=== PATIENT | male | born 1965 | race Caucasian/White ===

== ENCOUNTER → 2018-09-09 | Outpatient (CLI) | payer OTHER ==
--- NOTE | 2018-09-10 11:52 | ECHOF ---
Referral Reason:R07.9 Chest Pain MEASUREMENTS -------- HEIGHT: 188.0 cm WEIGHT: 136.1 kg BP: IVSd: 1.4 cm (0.6 - 1.1) LVIDd: 3.3 cm (3.9 - 5.3) LVPWd: 1.4 cm (0.6 - 1.1) IVSs: 1.8 cm LVIDs: 2.1 cm LVPWs: 1.8 cm RVIDd: 2.8 cm (< 3.3) LAESV Index (A-L): 21.03 ml/m Ao Diam: 3.8 cm (2.0 - 3.7) LA Diam: 2.7 cm (2.7 - 3.8) AV Cusp: 2.0 cm (1.5 - 2.6) MV E Jorge: 0.70 m/s MV DecT: 355 ms MV A Jorge: 0.73 m/s MV E/A Ratio: 0.97 RAP: 5.00 mmHg RVSP: 10.99 mmHg FINDINGS -------- Sinus rhythm. This was a technically adequate study. The left ventricular size is normal. There is moderate concentric left ventricular hypertrophy. O verall left ventricular systolic function is normal with, an EF between 55 - 60 %. The right ventricle is normal in size and function. Normal LA size by volume 22+/-6 ml/m2. The right atrium is normal in size. There is mild aortic valve sclerosis. There is no evidence of aortic regurgitation. There is no e vidence of aortic stenosis. The mitral valve leaflets are mildly thickened. There is trace to mild mitral regurgitation. Trace tricuspid regurgitation present. Right ventricular systolic pressure is normal at < 35 mmHg. There is no evidence of pulmonary hypertension. The pulmonic valve was not well visualized. The aortic root size is normal. Normal inferior vena cava with normal inspiratory collapse consistent with estimated right atrial pre ssure of 5 mmHg. There is no pericardial effusion. CONCLUSIONS -------- 1. Sinus rhythm. 2. This was a technically adequate study. 3. The left ventricular size is normal. 4. There is moderate concentric left ventricular hypertrophy. 5. Overall left ventricular systolic function is normal with, an EF between 55 - 60 %. 6. Normal LA size by volume 22+/-6 ml/m2. 7. There is mild aortic valve sclerosis. 8. The mitral valve leaflets are mildly thickened. 9. There is trace to mild mitral regurgitation. 10. Trace tricuspid regurgitation present. 11. Right ventricular systolic pressure is normal at < 35 mmHg. 12. There is no evidence of pulmonary hypertension. 13. The pulmonic valve was not well visualized. 14. The aortic root size is normal. 15. There is no pericardial effusion. [employer]OWNS: Jim Tang RDCS
--- NOTE | 2018-09-10 21:56 | EST ---
EXERCISE STRESS AGE: 53 SEX: Male HT: 6'2" WT: 300 PROTOCOL: Linwood STAGE: II DURATION OF EXERCISE: 7:30 HEART RATE REST: 72 BLOOD PRESSURE REST: 133/101 MAXIMUM HEART RATE ACHIEVED: 144 MAXIMUM BLOOD PRESSURE: 183/81 85% MPHR: 141 100% MPHR: 166 METS: 9.1 INDICATIONS: Chest pain. CLINICAL INFORMATION: Baseline heart rate 72 beats per minute. Baseline blood pressure 133/100 mmHg. Baseline 12-lead ECG shows sinus rhythm with normal ST segments. Patient exercised on a Linwood protocol for 7 minutes 36 seconds, achieving a peak heart rate of 146 beats per minute. Peak blood pressure 183/81 mmHg. He was short of breath at peak exercise. No chest pain noted. No ECG changes of ischemia. No arrhythmias. IMPRESSION: Average exercise capacity with shortness of breath and exertion without any ischemic changes. MMODL / IJN: [id number] /
== END | disposition home or self-care (01) ==
LOC: RADNMMAIN 10:45
PROVIDERS: ATTEND Family Medicine
DX: I08.0 Rheumatic disorders of both mitral and aortic valves (principal)
CPT/HCPCS: 93017; 93306

== ENCOUNTER 2024-08-31 13:19 | Emergency (ER) | payer BC, OTHER ==
[2024-08-31 13:51] VITALS: TEMP 98.1
--- NOTE | 2024-08-31 14:15 | ED ---
Fall HPI - General Source: patient Mode of arrival: ambulatory <Juan Carlos Minor - Last Filed: 08/31/24 14:14> - General Source: patient, RN notes reviewed, old records reviewed Mode of arrival: ambulatory Limitations: no limitations - History of Present Illness MD Complaint: fall -: hour(s) Fall From: standing When Fall Occurred: 1 hour [employer] Fall Witnessed: no Place Fall Occurred: home Loss of Consciousness: none Prolonged Down Time?: no Symptoms Prior to Fall: none Location: head Severity: moderate Severity scale (1-10): 6 Context: tripped/slipped Associated Symptoms: denies <Pedro Breaux - Last Filed: 09/01/24 07:46> - General Chief Complaint: Fall Stated Complaint: Fall-Head injury - History of Present Illness Initial Comments: Quick note: This is a 59-year-old male presenting with ongoing headache (10/18), dizziness difficulty concentrating following fall x10 days ago. Patient states he had a slip and fall on the ice, falling backwards and striking the back of his head causing loss of consciousness, sidewalk. Endorses ongoing symptoms, pain in right forehead and difficulty concentrating. (Juan Carlos Minor) This is a 59-year-old male to ER headache after fall. Patient is having persistent nausea vomiting and headache here in the emergency department. (Pedro Breaux) - Related Data Allergies Allergy/AdvReac Type Severity Reaction Status Date / Time No Known Allergies Allergy Verified 08/31/24 13:51 Review of Systems ROS Other: All systems not noted in ROS Statement are negative. <Juan Carlos Minor - Last Filed: 08/31/24 14:14> ROS Other: All systems not noted in ROS Statement are negative. <Pedro Breaux - Last Filed: 09/01/24 07:46> ROS Statement: Those systems with pertinent positive or pertinent negative responses have been documented in the HPI. Past Medical History Additional Past Medical History / Comment(s): allergies History of Any Multi-Drug Resistant Organisms: None Reported Past Surgical History: Cholecystectomy, Orthopedic Surgery Additional Past Surgical History / Comment(s): B/L knee arthro Past Psychological History: No Psychological Hx Reported Smoking Status: Current every day smoker Past Alcohol Use History: Occasional Past Drug Use History: Marijuana <Juan Carlos Minor - Last Filed: 08/31/24 14:14> General Exam Limitations: no limitations <MilyJuan Carlos - Last Filed: 08/31/24 14:14> General appearance: alert, in no apparent distress Head exam: Present: atraumatic, normocephalic, normal inspection Eye exam: Present: normal appearance, PERRL, EOMI. Absent: scleral icterus, conjunctival injection, periorbital swelling ENT exam: Present: normal exam, mucous membranes moist Neck exam: Present: normal inspection. Absent: tenderness, meningismus, lymphadenopathy Respiratory exam: Present: normal lung sounds bilaterally. Absent: respiratory distress, wheezes, rales, rhonchi, stridor Cardiovascular Exam: Present: regular rate, normal rhythm, normal heart sounds. Absent: systolic murmur, diastolic murmur, rubs, gallop, clicks GI/Abdominal exam: Present: soft, normal bowel sounds. Absent: distended, tenderness, guarding, rebound, rigid Extremities exam: Present: normal inspection, full ROM, normal capillary refill. Absent: tenderness, pedal edema, joint swelling, calf tenderness Back exam: Present: normal inspection Neurological exam: Present: alert, oriented X3, CN II-XII intact Psychiatric exam: Present: normal affect, normal mood Skin exam: Present: warm, dry, intact, normal color. Absent: rash <Pedro Breaux - Last Filed: 09/01/24 07:46> - General Exam Comments Initial Comments: Visual Physical Exam Vital signs reviewed General: Well-appearing, nontoxic, no acute distress. Head: Normocephalic, atraumatic Eyes: PERRLA, EOMI ENT: Airway patent Chest: Nonlabored breathing Skin: No visual rash, normal skin tone Neuro: Alert and oriented 3 Musculoskeletal: No gross abnormalities (Juan Carlos Minor) Course <Pedro Breaux - Last Filed: 09/01/24 07:46> Vital Signs 08/31/24 08/31/24 13:46 17:06 Temperature 98.1 F Pulse Rate 84 65 Respiratory 20 18 Rate Blood Pressure 153/97 149/92 O2 Sat by Pulse 98 98 Oximetry - Reevaluation(s) Reevaluation #1: 08/31/24 16:38 Medical record was reviewed (Pedro Breaux) Reevaluation #2: 08/31/24 16:38 Symptoms unchanged (Pedro Breaux) Reevaluation #3: 08/31/24 16:38 Informed of results and questions answered (Pedro Breaux) Reevaluation #4: Was pt. sent in by a medical professional or institution ([facility], [employer], urgent c are, hospital, or intermediate...) When possible be specific @ -no Did you speak to anyone other than the patient for history (EMS, parent, family, police, friend...)? What history was obtained from this source @ -no Did you review nursing and triage notes (agree or disagree)? Why? @ -agree Are old charts reviewed (outside hosp., previous admission, EMS record, old EKG, old radiological studies, urgent care reports/EKG's, intermediate records)? Report findings @ -yes Differential Diagnosis (chest pain, altered mental status, abdominal pain women, abdominal pain men, vaginal bleeding, weakness, fever, dyspnea, syncope, headache, dizziness, GI bleed, back pain, seizure, CVA, palpatations, mental health, musculoskeletal)? @ -prior EKG interpreted by me (3pts min.). @ -no X-rays interpreted by me (1pt min.). @ -no CT interpreted by me (1pt min.). @ -yes negative for acute disease U/S interpreted by me (1pt. min.). @ -no What testing was considered but not performed or refused? (CT, X-rays, U/S, labs)? Why? @ -none What meds were considered but not given or refused? Why? @ -none Did you discuss the management of the patient with other professionals (professionals i.e. [facility], [employer], lab, RT, psych nurse, medical social worker, learning engineer, teacher, [employer] revenue officer, director of casework services)? Give summary @ -no Was smoking cessation discussed for >3mins.? @ -no Was critical care preformed (if so, how long)? @ -no Were there social determinants of health that impacted care today? How? (Homelessness, low income, unemployed, alcoholism, drug addiction, transportation, low edu. Level, literacy, decrease access to med. care, group home, rehab)? @ -none Was there de-escalation of care discussed even if they declined (Discuss DNR or withdrawal of care, Hospice)? DNR status @ -no What co-morbidities impacted this encounter? (DM, HTN, Smoking, COPD, CAD, Cancer, CVA, ARF, Chemo, Hep., AIDS, mental health diagnosis, sleep apnea, morbid obesity)? @ -none Was patient admitted / discharged? Hospital course, mention meds given and route, prescriptions, significant lab abnormalities, going to OR and other pertinent info. @ - 59 male to the ER for evaluation patient presents today for evaluation of fall with head injury. No acute findings noted on imaging and patient can be discharged home Discharged Undiagnosed new problem with uncertain prognosis? @ -no Drug Therapy requiring intensive monitoring for toxicity (Heparin, Nitro, Insulin, Cardizem)? @ -no Were any procedures done? @ -no Diagnosis/symptom? @ - Acute, or Motion Picture Actor head injury fall steve, or Acute on Chronic? @ -Acute Uncomplicated (without systemic symptoms) or Complicated (systemic symptoms)? @ -Complicated Side effects of treatment? @ -no Exacerbation, Progression, or Severe Exacerbation? @ -exacerbation Poses a threat to life or bodily function? How? (Chest pain, USA, CT, pneumonia, PE, COPD, DKA, ARF, appy, cholecystitis, CVA, Diverticulitis, Homicidal, Suicidal, threat to staff... and all critical care pts) @ -yes significant head injury (Pedro Breaux) Medical Decision Making <Juan Carlos Minor - Last Filed: 08/31/24 14:14> - Radiology Data Radiology results: report reviewed (CT brain C-spine negative for acute disease), image reviewed <Pedro Breaux - Last Filed: 09/01/24 07:46> - Medical Decision Making I completed the quick note portion of this chart signed OK Carty Sterling) 59 male to the ER for evaluation patient presents today for evaluation of fall with head injury. No acute findings noted on imaging and patient can be discharged home (Pedro Breaux) Disposition <Juan Carlos Minor - Last Filed: 08/31/24 14:14> Is patient prescribed a controlled substance at d/c from ED?: No Time of Disposition: 16:30 <Pedro Breaux - Last Filed: 09/01/24 07:46> Clinical Impression: Fall, Head injury Disposition: HOME SELF-CARE Condition: Good Instructions (If sedation given, give patient instructions): Head Injury (ED) Referrals: Klaus Vargas MD [Primary Care Provider] - 1-2 days
--- NOTE | 2024-08-31 15:47 | CT ---
EXAMINATION TYPE: CT brain josue wo con DATE OF EXAM: 08/31/2024 3:32 PM COMPARISON: None. CLINICAL INDICATION: Male, 59 years old with history of Fall with ongoing head pain, dizziness, fell 10 days ago/ dizzy, pain TECHNIQUE: CT of the brain is performed utilizing 3 mm thick sections through the posterior fossa and 3 mm thick sections through the remaining calvarium. Study is performed within 24 hours of arrival to the hospital. Contrast used: mL of , (none if empty) CT DLP: 1541.8 mGycm, Automated exposure control for dose reduction was used. FINDINGS: No abnormal hyperdensity is present to suggest an acute intracranial hemorrhage. No mass lesion is evident. No acute infarcts are evident. Ventricles and sulci are appropriate for the patient age. Paranasal sinuses and mastoid air cells within the [id number] are clear. IMPRESSIONS: 1. No acute intracranial process. Follow-up MRI can be performed as clinically indicated. CT cervical spine. COMPARISON: None TECHNIQUE: CT of the cervical spine is performed in the axial plane at 2 mm thick sections. Reconstr ucted images in the coronal, and sagittal plane are reviewed on the computer. FINDINGS: No acute fractures are evident. Vertebral body alignment is normal. Disc heights are preserved. Vertebral body heights are preserved. No spinal canal stenosis is evident. Some minimal endplate spurring at C4-5 is evident. No neural foraminal stenosis is evident. IMPRESSION: 1. No acute osseous abnormality cervical spine. [facility], , 08/31/2024 3:44 PM
[2024-08-31 17:07] VITALS: BP 149/92; PULSE 65; RESP 18
== END 2024-08-31 17:07 | disposition home or self-care (01) ==
LOC: EC 13:19
DX: S09.90XA Unspecified injury of head, initial encounter (principal); F17.200 Nicotine dependence, unspecified, uncomplicated; W00.0XXA Fall on same level due to ice and snow, initial encounter
CPT/HCPCS: 70450; 72125; 99283

== ENCOUNTER → 2024-10-06 | Outpatient (CLI) | payer BC ==
--- NOTE | 2024-10-06 14:19 | MR ---
EXAMINATION TYPE: MR brain wo/w con DATE OF EXAM: 10/06/2024 COMPARISON: CT brain August 31, 2024 HISTORY: Headaches, brain fog, dizziness, hx of head inj/concussions, most recent one Aug 2024. TECHNIQUE: Multiplanar, multisequence images of the brain and brainstem is performed without and with IV contras t, utilizing 12 mL intravenous Gadobutrol . FINDINGS: Diffusion weighted images demonstrate no evidence of a recent infarct or other diffusion ab normality. There is no extra-axial fluid collection or significant white matter signal abnormality. The ventricular system and cisternal spaces are normal in size and appearance. The brain volume is age appropriate. No suspicious intraparenchymal blood product on the T2 star weighted images. Midline structures demonstrate normal morphology. The craniocervical junction appears within normal limits. Post contrast images demonstrate no abnormal enhancement. The dural venous sinuses appear pa tent. The globes are intact bilaterally. There is small 12 mm mucous retention cyst or polyp in the p osterior right maxillary sinus. There is mild mucosal thickening involving anterior ethmoid sinuses b ilaterally. IMPRESSION: Some chronic paranasal sinus disease otherwise unremarkable study. [facility], , 10/06/2024 2:17 PM
== END | disposition home or self-care (01) ==
LOC: RADMRIMAIN 12:55
PROVIDERS: ATTEND Family Medicine
DX: S06.0X9A Concussion with loss of consciousness of unspecified duration, initial encounter (principal); J34.89 Other specified disorders of nose and nasal sinuses
CPT/HCPCS: 70553; A9585